=== PATIENT | male | born 1990 | race Two or more races ===

== ENCOUNTER 2021-06-12 18:08 | Emergency (ER) | payer MEDICAID ==
[~2021-06-12] VITALS: Ht 177.8 cm; Wt 79.8 kg
[2021-06-12 18:20] VITALS: BP 132/78
[2021-06-12] MEDS ORDERED: SULF1TAB48 PO (19:35)
== END 2021-06-12 19:49 | disposition home or self-care (01) ==
LOC: ER 18:13
DX: L03.115 Cellulitis of right lower limb (principal)